=== PATIENT | male | born 2000 | race Two or more races ===

== ENCOUNTER 2023-02-25 03:13 | Emergency (ER) | payer OTHER ==
[2023-02-25 03:37] VITALS: BP 138/82; PULSE 75; RESP 18; TEMP 98.2; BMI 28.1
[2023-02-25] MEDS ORDERED: ACETAMINOPHEN 500 MG TABLET (FP) PO ONE (04:00)
[2023-02-25] MEDS ORDERED: ACETAMINOPHEN 325 MG TABLET (FP) ONE (04:08)
== END 2023-02-25 04:31 | disposition home or self-care (01) ==
LOC: JER 03:13
DX: S60.312A Abrasion of left thumb, initial encounter (principal); M79.645 Pain in left finger(s); W26.8XXA Contact with other sharp object(s), not elsewhere classified, initial encounter
CPT/HCPCS: 99283-25